=== PATIENT | male | born 1985 | race Caucasian/White ===

== ENCOUNTER 2020-01-07 20:02 | Emergency (ER) | payer SELFPAY ==
[~2020-01-07] VITALS: Ht 180.3 cm; Wt 106.7 kg
--- NOTE | 2020-01-07 20:23 | NUR ---
C/O MID BACK PAIN X1 WEEK. REPORTS RECENT FALL DOWN FOUR STEPS 2 WEEKS AGO. PLACED ON VITALS MONITORS. ED PROVIDER AT BEDSIDE FOR EVAL.
[2020-01-07] MEDS ORDERED: METH10OR12 PO (20:27)
[2020-01-07] MEDS ORDERED: DIAZEPAM 5 MG TABLET PO ONE (20:30)
[2020-01-07] MEDS ORDERED: LIDODERM 5% PATCH TD ONE ×2 (20:30→21:02)
[2020-01-07] MEDS ORDERED: KETOROLAC 30 MG/1 ML IM ONE (20:30)
[2020-01-07] MEDS ORDERED: DIAZEPAM 5 MG TABLET ONE (21:02)
[2020-01-07] MEDS ORDERED: KETOROLAC 30 MG/1 ML ONE (21:02)
[2020-01-07 21:09] VITALS: BP 117/63
== END 2020-01-07 21:35 | disposition home or self-care (01) ==
LOC: ED 20:32
DX: G89.11 Acute pain due to trauma (principal); M54.6 Pain in thoracic spine; F17.200 Nicotine dependence, unspecified, uncomplicated; Z72.9 Problem related to lifestyle, unspecified; W10.9XXA Fall (on) (from) unspecified stairs and steps, initial encounter; Y93.89 Activity, other specified; Y92.009 Unspecified place in unspecified non-institutional (private) residence as the place of occurrence of the external cause; Y99.8 Other external cause status
CPT/HCPCS: 72072; 96372; 99283; J1885

== ENCOUNTER 2020-10-14 18:48 | Emergency (ER) | payer OTHER ==
[~2020-10-14] VITALS: Ht 180.3 cm; Wt 121.5 kg
[~2020-10-14 18:48] MED LIST: METH10OR12 PO
[2020-10-14 19:13] VITALS: BP 149/101
[2020-10-14] MEDS ORDERED: KETOROLAC 30 MG/1 ML ONE (19:57)
[2020-10-14] MEDS ORDERED: DIAZEPAM 5 MG TABLET ONE (19:57)
[2020-10-14] MEDS ORDERED: DIAZEPAM 5 MG TABLET PO ONE (20:00)
[2020-10-14] MEDS ORDERED: KETOROLAC 30 MG/1 ML IM ONE (20:00)
--- NOTE | 2020-10-14 20:20 | NUR ---
Patient given discharge instructions and they have confirmed that they understand the instructions. Patient ambulatory with steady gait, states he has improvement in pain with walking. NAD, all questions answered appropriately, denies additional needs at this time. No personal belongings left in room after discharge.
== END 2020-10-14 20:22 | disposition home or self-care (01) ==
LOC: ED 20:15
DX: S29.012A Strain of muscle and tendon of back wall of thorax, initial encounter (principal); M51.34 Other intervertebral disc degeneration, thoracic region; G89.29 Other chronic pain; W18.30XA Fall on same level, unspecified, initial encounter; Y93.89 Activity, other specified; Y92.89 Other specified places as the place of occurrence of the external cause; Y99.8 Other external cause status
CPT/HCPCS: 72072; 96372; 99283; J1885